=== PATIENT | male | born 1960 | race Caucasian/White ===

== ENCOUNTER → 2018-11-08 | Emergency (ER) | payer OTHER ==
[~2018-11-08] VITALS: Ht 170.2 cm; Wt 77.4 kg
[~2018-11-08] MED LIST: AMOX1TAB10 PO; IBUP800T48 PO
[2018-11-08 21:41] VITALS: BP 139/89; PULSE 85; RESP 16; Ht 170.2 cm; Wt 77.4 kg
== END | disposition home or self-care (01) ==
LOC: FTE 21:35
DX: H66.003 Acute suppurative otitis media without spontaneous rupture of ear drum, bilateral (principal)
CPT/HCPCS: 99283